=== PATIENT | female | born 1995 | race Caucasian/White ===

== ENCOUNTER 2017-04-30 17:47 | Emergency (ER) | payer OTHER ==
[~2017-04-30] VITALS: Ht 162.6 cm; Wt 61.9 kg
[2017-04-30] MEDS ORDERED: prenatal vitamin PO (17:58)
[2017-04-30 20:11] LABS: BASO % 0.5 % (0.0-1.0); EOS # 0.2 K/mm3 (0.0-0.50); EOS % 1.6 % (0.0-3.0); LARGE UNSTAINED CELL # 0.1 K/mm3 (0.0-0.4); LARGE UNSTAINED CELL % 0.9 % (0.0-4.0); LYMPH # 2.3 K/mm3 (1.5-6.5); LYMPH % 20.8 % (24.0-44.0); MEAN CORPUSCULAR HEMOGLOBIN 24.8 pg (27.0-33.0); MEAN CORPUSCULAR HGB CONC 31.9 g/dl (32.0-36.5); MEAN CORPUSCULAR VOLUME 77.9 fl (80.0-96.0); MONO # 0.5 K/mm3 (0.0-0.8); MONO % 4.4 % (0.0-5.0); NEUTROPHILS # 7.7 K/mm3 (1.8-7.7); NEUTROPHILS % 71.8 % (36.0-66.0); PLATELET COUNT, AUTOMATED 279 k/mm3 (150-450); WHITE BLOOD COUNT 10.7 K/mm3 (4.0-10.0)
--- NOTE | 2017-04-30 20:40 | REPUSA ---
Clinical history: Pain. Findings: Real-time transvaginal ultrasound images of the pelvis were obtained. An anteverted uterus is noted, measuring 9.0 x 4.1 x 5.3 cm. The uterus demonstrates normal echotexture and echogenicity. The endometrial stripe measures 12 mm. There is no evidence of an intrauterine gestation. The right ovary measures 2.2 x 1.3 x 2.6 cm. The left ovary measures 3.2 x 2.2 x 2.9 cm. There is a cystic les ion in the left ovary measuring 1.5 cm. No adnexal masses are seen. Color Doppler flow is seen within both ovaries. There is a small on offree fluid. Impression: 1. No evidence of an intrauterine gestation at this time. Differential diagnosis includes early pregn megan, missed , or less likely, ectopic . Follow-up with serial serum beta hCG levels would be helpful for further evaluation. 2.. Left ovarian corpus luteum cyst.
[2017-04-30 20:44] LABS: ANION GAP 7 MEQ/L (8-16); BLOOD UREA NITROGEN 12 MG/DL (7-18); CALCIUM LEVEL 8.8 MG/DL (8.5-10.1); CARBON DIOXIDE LEVEL 27 MEQ/L (21-32); CHLORIDE LEVEL 105 MEQ/L (98-107); CREATININE FOR GFR 0.77 MG/DL (0.55-1.02); GLOMERULAR FILTRATION RATE > 60.0 (>60); GLUCOSE, FASTING 78 MG/DL (70-105); HCG, SERUM QUANTITATIVE 84 MIU/ML; POTASSIUM SERUM 3.4 MEQ/L (3.5-5.1); SODIUM LEVEL 139 MEQ/L (136-145)
[2017-04-30 21:48] VITALS: BP 123/77
== END 2017-04-30 21:54 | disposition home or self-care (01) ==
LOC: M ED 19:12
DX: O26.899 Other specified pregnancy related conditions, unspecified trimester (principal); O23.40 Unspecified infection of urinary tract in pregnancy, unspecified trimester; O34.80 Maternal care for other abnormalities of pelvic organs, unspecified trimester; N83.202 Unspecified ovarian cyst, left side; N80.9 Endometriosis, unspecified; O99.280 Endocrine, nutritional and metabolic diseases complicating pregnancy, unspecified trimester; Z88.5 Allergy status to narcotic agent; Z87.891 Personal history of nicotine dependence; Z3A.00 Weeks of gestation of pregnancy not specified

== ENCOUNTER → 2017-05-02 | Outpatient (CLI) | payer OTHER ==
[~2017-05-02] MED LIST: prenatal vitamin PO
== END ==
LOC: M LAB 15:03
PROVIDERS: ATTEND Student in an Organized Health Care Education/Training Program
DX: R10.9 Unspecified abdominal pain (principal)

== ENCOUNTER 2017-06-07 12:36 | Emergency (ER) | payer OTHER ==
[~2017-06-07] VITALS: Ht 160 cm; Wt 62.1 kg
[2017-06-07] MEDS ORDERED: OMEG100011 PO (12:43)
[2017-06-07] MEDS ORDERED: VITA200016 PO (12:43)
[2017-06-07] MEDS ORDERED: NS 500 ML IV ONE (13:30)
[2017-06-07 14:04] LABS: BASO % 0.2 % (0.0-1.0); EOS # 0.1 K/mm3 (0.0-0.50); EOS % 1.8 % (0.0-3.0); LARGE UNSTAINED CELL # 0.1 K/mm3 (0.0-0.4); LYMPH # 1.5 K/mm3 (1.5-6.5); LYMPH % 20.5 % (24.0-44.0); MEAN CORPUSCULAR HEMOGLOBIN 27.9 pg (27.0-33.0); MEAN CORPUSCULAR VOLUME 84.6 fl (80.0-96.0); MONO # 0.3 K/mm3 (0.0-0.8); MONO % 4.5 % (0.0-5.0); PLATELET COUNT, AUTOMATED 207 k/mm3 (150-450); RED CELL DISTRIBUTION WIDTH 18.3 % (11.5-14.5); WHITE BLOOD COUNT 6.9 K/mm3 (4.0-10.0)
[2017-06-07 14:24] LABS: ALBUMIN 3.5 GM/DL (3.2-5.2); ALBUMIN/GLOBULIN RATIO 0.92 (1.00-1.93); ALKALINE PHOSPHATASE 49 U/L (45-117); ALT/SGPT 18 U/L (12-78); ANION GAP 7 MEQ/L (8-16); AST/SGOT 9 U/L (15-37); BILIRUBIN,DIRECT < 0.1 MG/DL (0.0-0.2); BILIRUBIN,TOTAL 0.2 MG/DL (0.2-1.0); BLOOD UREA NITROGEN 7 MG/DL (7-18); CALCIUM LEVEL 9.1 MG/DL (8.5-10.1); CARBON DIOXIDE LEVEL 25 MEQ/L (21-32); CHLORIDE LEVEL 104 MEQ/L (98-107); CREATININE FOR GFR 0.66 MG/DL (0.55-1.02); GLOMERULAR FILTRATION RATE > 60.0 (>60); GLUCOSE, FASTING 66 MG/DL (70-105); POTASSIUM SERUM 3.5 MEQ/L (3.5-5.1); SODIUM LEVEL 136 MEQ/L (136-145); TOTAL PROTEIN 7.3 GM/DL (6.4-8.2)
[2017-06-07 15:56] VITALS: BP 123/69
--- NOTE | 2017-06-07 20:47 | REP ---
RIGHT LOWER QUADRANT ULTRASOUND: Real-time sonographic evaluation of the right lower quadrant is performed. The patient is and an intrauterine gestation demonstrates a heart rate of 171 beats per minute. The appendix is visualized and appears normal with no dilatation. Appendix is compressible. Right ovary is identified measuring 2.5 x 1.7 x 1.6 cm. There is no surrounding free fluid. There is no evidence of ovarian torsion with blood flow seen in the right ovary with duplex Doppler evaluation. No fluid collection or free fluid is seen. IMPRESSION: Normal appendix. Normal right ovary with no torsion or free fluid in the right lower quadrant. Signed by Zane Sol MD 06/08/2017 01:05 P
== END 2017-06-07 16:07 | disposition home or self-care (01) ==
LOC: M ED 13:28
DX: O21.1 Hyperemesis gravidarum with metabolic disturbance (principal); O26.891 Other specified pregnancy related conditions, first trimester; R19.7 Diarrhea, unspecified; O99.281 Endocrine, nutritional and metabolic diseases complicating pregnancy, first trimester; E16.2 Hypoglycemia, unspecified; E28.2 Polycystic ovarian syndrome; Z3A.10 10 weeks gestation of pregnancy; Z87.891 Personal history of nicotine dependence; Z88.5 Allergy status to narcotic agent

== ENCOUNTER 2017-06-15 19:08 | Emergency (ER) | payer OTHER ==
[~2017-06-15] VITALS: Ht 162.6 cm; Wt 62.1 kg
[~2017-06-15 19:08] MED LIST changes: +OMEG100011 PO; +VITA200016 PO
[2017-06-15 19:10] VITALS: BP 116/83
== END 2017-06-15 20:36 | disposition home or self-care (01) ==
LOC: M ED 19:08
DX: O26.611 Liver and biliary tract disorders in pregnancy, first trimester (principal); K92.1 Melena; Z3A.11 11 weeks gestation of pregnancy

== ENCOUNTER → 2017-06-16 | Outpatient (REF) | payer OTHER ==
[~2017-06-16] MED LIST changes: +REGL10TA6 PO
[2017-06-19 10:13] LABS: O+P EXAM Final report (.)
== END ==
LOC: M LAB REF 16:01
PROVIDERS: ATTEND Physician Assistant Medical
DX: R19.5 Other fecal abnormalities (principal)

== ENCOUNTER 2017-07-18 22:59 | Emergency (ER) | payer OTHER ==
[~2017-07-18] VITALS: Ht 162.6 cm; Wt 59.1 kg
[~2017-07-18 22:59] MED LIST changes: -REGL10TA6 PO
[2017-07-19] MEDS ORDERED: NS 1,000 ML IV ONE (01:15)
[2017-07-19] MEDS ORDERED: METOCLOPRAMIDE INJ 10MG/2ML VIAL (J2765) IV ONE (01:15)
[2017-07-19 01:49] LABS: BASO % 0.5 % (0.0-1.0); EOS # 0.2 K/mm3 (0.0-0.50); EOS % 2.6 % (0.0-3.0); LARGE UNSTAINED CELL # 0.1 K/mm3 (0.0-0.4); LARGE UNSTAINED CELL % 0.9 % (0.0-4.0); LYMPH # 1.8 K/mm3 (1.5-6.5); LYMPH % 23.7 % (24.0-44.0); MEAN CORPUSCULAR HEMOGLOBIN 29.9 pg (27.0-33.0); MEAN CORPUSCULAR HGB CONC 35.3 g/dl (32.0-36.5); MEAN CORPUSCULAR VOLUME 84.8 fl (80.0-96.0); MONO # 0.4 K/mm3 (0.0-0.8); MONO % 4.8 % (0.0-5.0); NEUTROPHILS % 67.3 % (36.0-66.0); PLATELET COUNT, AUTOMATED 202 k/mm3 (150-450); RED CELL DISTRIBUTION WIDTH 14.5 % (11.5-14.5); WHITE BLOOD COUNT 7.4 K/mm3 (4.0-10.0)
[2017-07-19 02:06] LABS: ALBUMIN/GLOBULIN RATIO 0.91 (1.00-1.93); ALKALINE PHOSPHATASE 49 U/L (45-117); ALT/SGPT 14 U/L (12-78); ANION GAP 10 MEQ/L (8-16); AST/SGOT 11 U/L (15-37); BILIRUBIN,DIRECT < 0.1 MG/DL (0.0-0.2); BILIRUBIN,TOTAL 0.1 MG/DL (0.2-1.0); BLOOD UREA NITROGEN 7 MG/DL (7-18); CALCIUM LEVEL 8.5 MG/DL (8.5-10.1); CARBON DIOXIDE LEVEL 24 MEQ/L (21-32); CHLORIDE LEVEL 108 MEQ/L (98-107); CREATININE FOR GFR 0.46 MG/DL (0.55-1.02); GLOMERULAR FILTRATION RATE > 60.0 (>60); GLUCOSE, FASTING 76 MG/DL (70-105); POTASSIUM SERUM 3.8 MEQ/L (3.5-5.1); SODIUM LEVEL 142 MEQ/L (136-145); TOTAL PROTEIN 6.3 GM/DL (6.4-8.2)
[2017-07-19] MEDS ORDERED: NS 500 ML IV ONE (03:45)
[2017-07-19] MEDS ORDERED: REGL10TA6 PO (04:03)
[2017-07-19 04:27] VITALS: BP 118/70
== END 2017-07-19 04:28 | disposition home or self-care (01) ==
LOC: M ED 22:59
DX: O21.0 Mild hyperemesis gravidarum (principal); Z3A.16 16 weeks gestation of pregnancy; Z87.891 Personal history of nicotine dependence
CPT/HCPCS: 80048; 80076; 85025; 96374; 99283; J2765

== ENCOUNTER 2017-07-22 17:37 | Emergency (ER) | payer OTHER ==
[~2017-07-22] VITALS: Ht 162.6 cm; Wt 62.1 kg
[~2017-07-22 17:37] MED LIST changes: +REGL10TA6 PO
[2017-07-22 19:48] VITALS: BP 105/66
== END 2017-07-22 20:01 | disposition home or self-care (01) ==
LOC: M ED 17:37
DX: O99.89 Other specified diseases and conditions complicating pregnancy, childbirth and the puerperium (principal); R19.5 Other fecal abnormalities; Z3A.16 16 weeks gestation of pregnancy

== ENCOUNTER 2017-10-06 13:18 | Outpatient (CLI) | payer OTHER ==
[2017-10-06] MEDS ORDERED: FLUCONAZOLE 50MG TABLET PO ONE (15:45)
== END 2017-10-06 16:05 | disposition home or self-care (01) ==
LOC: M LDO 13:18
PROVIDERS: ATTEND Obstetrics & Gynecology
DX: O26.892 Other specified pregnancy related conditions, second trimester (principal); Z3A.26 26 weeks gestation of pregnancy; B37.3 Candidiasis of vulva and vagina; Z88.5 Allergy status to narcotic agent

== ENCOUNTER 2017-11-01 13:03 | Outpatient (CLI) | payer OTHER ==
[~2017-11-01] VITALS: Ht 162.6 cm; Wt 68.2 kg
[2017-11-01 13:19] VITALS: BP 103/58
[2017-11-01] MEDS ORDERED: TUMS500C PO (13:29)
[2017-11-01] MEDS ORDERED: ACET50TA PO (13:29)
[2017-11-01] MEDS ORDERED: FLUCONAZOLE 50MG TABLET PO STA (14:27)
== END 2017-11-01 14:53 | disposition home or self-care (01) ==
LOC: M LDO 13:03
PROVIDERS: ATTEND Obstetrics & Gynecology
DX: O26.893 Other specified pregnancy related conditions, third trimester (principal); Z3A.30 30 weeks gestation of pregnancy; B37.3 Candidiasis of vulva and vagina; R10.9 Unspecified abdominal pain; Z88.5 Allergy status to narcotic agent

== ENCOUNTER 2017-12-23 05:34 | Inpatient (IN) | payer OTHER ==
[2017-12-23] MEDS ORDERED: AZITHROMYCIN INJ 500MG VIAL (J0456) As Ordered (05:45)
[2017-12-23] MEDS: ACETAMINOPHEN 650 MG SUPP PR (06:00)
[2017-12-23] MEDS ORDERED: BUPIVACAINE HCL 0.25% 10 ML VIAL INFIL (06:00)
[2017-12-23] MEDS: AZITHROMYCIN INJ 500 MG, VIAL MATE ADAPTER 1 EACH in D5W 250 ML IV (06:19)
[2017-12-23] MEDS: LR 1,000 ML IV ×5 (06:45→23:25)
[2017-12-23 07:43] LABS: HEMOGLOBIN 11.8 g/dl (12.0-16.0); MEAN CORPUSCULAR HEMOGLOBIN 30.3 pg (27.0-33.0); MEAN CORPUSCULAR HGB CONC 33.7 g/dl (32.0-36.5); PLATELET COUNT, AUTOMATED 145 10^3/uL (150-450); RED BLOOD COUNT 3.89 10^6/uL (4.00-5.40); RED CELL DISTRIBUTION WIDTH 14.2 % (11.5-14.5)
[2017-12-23] MEDS ORDERED: OXYTOCIN INJ 10 UNITS/ML VIAL (J2590) As Ordered ×4 (07:43→08:38)
[2017-12-23] MEDS ORDERED: MORPHINE PRES-FREE INJ 10 MG/10 ML VIAL (J2274) As Ordered (07:43)
[2017-12-23] MEDS: BICITRA 30ML SOLN UDC PO (07:54)
[2017-12-23] MEDS ORDERED: METOCLOPRAMIDE INJ 10MG/2ML VIAL (J2765) IV (08:07)
[2017-12-23] MEDS ORDERED: NALBUPHINE HCL 10 MG/ML AMP (J2300) IV (08:07)
[2017-12-23] MEDS ORDERED: NALOXONE INJ 0.4 MG/1 ML VIAL (J2310) IV ×2 (08:07)
[2017-12-23] MEDS ORDERED: PHENYLephrine HCL 500 MCG/5 ML (100MCG/ML) SYRINGE (J2370) As Ordered ×2 (08:18→08:20)
[2017-12-23] MEDS ORDERED: ONDANSETRON 4MG/2ML VIAL (J2405) As Ordered (08:34)
[2017-12-23] MEDS ORDERED: ePHEDrine INJ 50 MG/ML VIAL As Ordered (08:38)
[2017-12-23] MEDS ORDERED: KETOROLAC 60 MG/2 ML VIAL (J1885) As Ordered (08:52)
[2017-12-23 08:53] LABS: CORD GAS ABE A -4.2; CORD GAS HCO3 A 23.1 MEQ/L; CORD GAS O2 SAT A 29.6 %; CORD GAS PCO2 A 51.1 mmHg; CORD GAS PH A 7.273 UNITS; CORD GAS PO2 A 16.4 mmHg; CORD GAS SBC A 19.6 MEQ/L; CORD GAS TCO2 A 24.7 MEQ/L
[2017-12-23 08:56] LABS: CORD GAS HCO3 V 21.9 MEQ/L; CORD GAS O2 SAT V 76.8 %; CORD GAS PCO2 V 42.8 mmHg; CORD GAS PH V 7.326 UNITS; CORD GAS PO2 V 34.1 mmHg; CORD GAS SBC V 20.7 MEQ/L; CORD GAS TCO2 V 23.2 MEQ/L
[2017-12-23] MEDS ORDERED: OXYTOCIN DRIP 30 UNITS in APPROPRIATE DILUENT 1 EA IV (09:10)
[2017-12-23] MEDS ORDERED: MEASLES,MUMPS,RUBELLA VACCINE INJ (MMR-II) (90707) SC (09:15)
[2017-12-23] MEDS ORDERED: MOM 30ML SUSPENSION UDC PO (09:15)
[2017-12-23] MEDS ORDERED: METHYLERGONOVINE MALEATE 0.2 MG TAB PO (09:15)
[2017-12-23] MEDS ORDERED: ANUSOL HC CREAM 30GM TOP (09:15)
[2017-12-23] MEDS ORDERED: OXYTOCIN INJ 10 UNITS/ML VIAL (J2590) IV (09:15)
[2017-12-23] MEDS ORDERED: RHOGAM 300 MCG (1500 IU) INJ (J2790) IM (09:15)
[2017-12-23] MEDS ORDERED: fentaNYL 100 MCG/2 ML INJECTION (J3010) As Ordered (09:25)
[2017-12-23] MEDS ORDERED: PERCOCET 5MG/325MG TAB PO (09:45)
[2017-12-23] MEDS ORDERED: MEPERIDINE INJ 25 MG/ML VIAL (J2175) IV (09:45)
[2017-12-23] MEDS ORDERED: fentaNYL 100 MCG/2 ML INJECTION (J3010) IV (09:45)
[2017-12-23] MEDS ORDERED: ONDANSETRON 4MG/2ML VIAL (J2405) IV (09:45)
[2017-12-23] MEDS: ONDANSETRON 4MG/2ML VIAL (J2405) IV (15:38)
[2017-12-23] MEDS: IBUPROFEN 800 MG TAB PO (16:50)
[2017-12-24] MEDS: IBUPROFEN 800 MG TAB PO ×3 (01:51→18:29)
[2017-12-24] MEDS: NORCO, ANEXSIA 5/325MG TABLET (HYDROcodone/ACETAMINOPHEN) PO ×5 (05:26→23:55)
[2017-12-24] MEDS: LR 1,000 ML IV ×3 (06:45→22:45)
[2017-12-24 07:18] LABS: HEMATOCRIT 32.1 % (36.0-47.0); MEAN CORPUSCULAR HEMOGLOBIN 30.8 pg (27.0-33.0); MEAN CORPUSCULAR HGB CONC 34.3 g/dl (32.0-36.5); MEAN CORPUSCULAR VOLUME 89.9 fl (80.0-96.0); PLATELET COUNT, AUTOMATED 128 10^3/uL (150-450); RED BLOOD COUNT 3.57 10^6/uL (4.00-5.40); RED CELL DISTRIBUTION WIDTH 13.9 % (11.5-14.5); WHITE BLOOD COUNT 11.6 10^3/uL (4.0-10.0)
[2017-12-24] MEDS: ADACEL/BOOSTRIX VACCINE (DIPHTH/PERTUSS/ACELL/TETANUS)0.5ML SYR (90715) IM (09:00)
[2017-12-24] MEDS: PRENATAL VITAMINS CHEWABLE TABLET PO (09:48)
[2017-12-24] MEDS: DOCUSATE SODIUM 100 MG CAP PO (15:09)
[2017-12-24] MEDS: ONDANSETRON 4 MG TAB (S0181) PO (18:25)
[2017-12-25] MEDS: IBUPROFEN 800 MG TAB PO ×3 (00:42→16:57)
[2017-12-25] MEDS: ONDANSETRON 4 MG TAB (S0181) PO ×3 (03:07→17:47)
[2017-12-25] MEDS: NORCO, ANEXSIA 5/325MG TABLET (HYDROcodone/ACETAMINOPHEN) PO ×3 (05:52→17:46)
[2017-12-25] MEDS: LR 1,000 ML IV (06:28)
[2017-12-25] MEDS: PRENATAL VITAMINS CHEWABLE TABLET PO (09:01)
[2017-12-25] MEDS: DOCUSATE SODIUM 100 MG CAP PO (16:58)
== END 2017-12-25 19:04 | disposition home or self-care (01) | DRG 766 ==
LOC: M LDI 05:34 → M OBS 11:07
PROVIDERS: Obstetrics & Gynecology
PROC: 10D00Z1 Extraction of Products of Conception, Low, Open Approach (ICD-10-PCS; principal; 2017-12-23 07:30)
DX: O98.52 Other viral diseases complicating childbirth (principal); B00.9 Herpesviral infection, unspecified; Z37.0 Single live birth; Z79.899 Other long term (current) drug therapy; Z3A.37 37 weeks gestation of pregnancy